=== PATIENT | male | born 1990 | race Caucasian/White ===

== ENCOUNTER → 2020-02-16 | Outpatient (CLI) | payer OTHER ==
[~2020-02-16] MED LIST: ASPIRIN PO; ASPIRIN325 PO; DOXYCYCLINE 10100 MG PO; PLAVIX 75 MG TA75 MG PO; TETRACYCLINE
== END ==
LOC: LAB 09:53
PROVIDERS: ATTEND Family Medicine
DX: R05 Cough (principal); Z20.828 Contact with and (suspected) exposure to other viral communicable diseases